=== PATIENT | male | born 1935 | race Hispanic/Latino ===

== ENCOUNTER 2020-03-29 08:38 | Inpatient (IN) | payer MEDICARE ==
[~2020-03-29] VITALS: Ht 170.2 cm; Wt 62.1 kg
[~2020-03-29 08:38] MED LIST: AEC81 PO; ENAL10TA PO; INS7030 SQ; Lipase/Protease/Amylase PO; METF-444 PO; MULT-1203 PO; POLY17PO4 PO
[2020-03-29 09:24] LABS: BASOPHILS % (AUTO) 0.4 % (0.0-5.0); EOSINOPHILS % (AUTO) 0.7 % (0.0-8.0); HEMATOCRIT 36.6 % (42-54); LYMPHOCYTES % (AUTO) 6.3 % (21.0-51.0); MEAN CORPUSCULAR HEMOGLOBIN 29.2 pg (27.0-33.0); MEAN CORPUSCULAR HGB CONC 32.2 g/dL (32.0-36.0); MEAN CORPUSCULAR VOLUME 90.6 fL (79-99); MONOCYTES % (AUTO) 5.6 % (3.0-13.0); NEUTROPHILS % (AUTO) 86.6 % (40.0-77.0); PLATELET COUNT (AUTO) 148 K/uL (130-400); RED BLOOD CELL COUNT(AUTO) 4.04 MIL/uL (4.50-6.20); RED CELL DISTRIBUTION WIDTH 12.5 % (11.0-15.5); WHITE BLOOD COUNT (AUTO) 8.2 K/uL (4.8-10.8)
[2020-03-29 09:33] LABS: CARBON DIOXIDE 25 mmol/L (21-32); CHLORIDE 101 mmol/L (101-111); GLOMERULAR FILTR. RATE CALC 76 mL/min (>60); GLUCOSE,RANDOM 203 mg/dL (70-105); POTASSIUM 4.1 mmol/L (3.5-5.1); SODIUM SERUM 137 mmol/L (136-145); UREA NITROGEN, BLOOD 24 mg/dL (7-18)
[2020-03-29 09:38] LABS: INR 1.04 (0.85-1.15); PARTIAL THROMBOPLASTIN TIME 28.4 SEC (26.3-35.5); PROTHROMBIN TIME 11.2 SEC (9.6-11.6)
[2020-03-29 09:44] LABS: ALANINE AMINOTRANSFERASE 34 U/L (12-78); ALBUMIN 3.3 g/dL (3.5-5.0); ASPARTATE AMINOTRANSFERASE 41 U/L (10-37); BILIRUBIN,TOTAL 0.7 mg/dL (0.2-1.0); CREATINE KINASE, TOTAL 195 U/L (21-232); MYOGLOBIN 303 ng/mL (10-92); TOTAL PROTEIN, SERUM 6.8 g/dL (6.0-8.3); TROPONIN I < 0.04 ng/mL (0.00-0.06)
[2020-03-29] MEDS ORDERED: CEFTRIAXONE SODIUM 1 GM ONE (09:49)
[2020-03-29] MEDS ORDERED: AZITHROMYCIN 500MG+NS 250ML 250 ML IV ONE (09:49)
[2020-03-29 09:52] LABS: APPEARANCE,URINE Clear (CLEAR); BILIRUBIN,URINE Negative (NEGATIVE); COLOR,URINE Yellow (YELLOW); GLUCOSE, URINE (UA) >=1000 mg/dL (NEGATIVE); KETONES,URINE 40 mg/dL (NEGATIVE); LEUKOCYTE ESTERASE ,URINE Negative (NEGATIVE); NITRATE,URINE Negative (NEGATIVE); OCCULT BLOOD,URINE Small (NEGATIVE); PROTEIN,URINE Trace mg/dL (NEGATIVE)
[2020-03-29 10:08] LABS: BACTERIA,URINE Rare /HPF (None Seen); RBC,URINE 0-1 /HPF (0-1); SQUAMOUS EPITHELIAL CELL,UR 0-2 /HPF (0-2); WBC,URINE 0-1 /HPF (0-1)
[2020-03-29] MEDS ORDERED: ENAL5TAB PO (11:26)
[2020-03-29] MEDS ORDERED: METF-444 PO (11:26)
[2020-03-29] MEDS ORDERED: [UNRECOGNIZED DRUG - OTHER] PO (11:26)
[2020-03-29] MEDS ORDERED: INSU100I24 SQ (11:30)
[2020-03-29] MEDS ORDERED: DICL2100G TP (11:30)
[2020-03-29] MEDS ORDERED: INSU100I3 SQ (11:30)
[2020-03-29] MEDS ORDERED: EMPA10TA PO (11:30)
[2020-03-29] MEDS ORDERED: BENZ-51 PO (11:30)
[2020-03-29] MEDS ORDERED: ZENPEP PO (11:33)
[2020-03-29] MEDS ORDERED: LIDOCAINE HCL-MPF 1% 2ML VIAL IJ PRN (13:30)
[2020-03-29] MEDS ORDERED: DIPHENHYDRAMINE HCL 25 MG CAPSULE PO PRN (13:30)
[2020-03-29] MEDS ORDERED: GLUCAGON 1MG KIT 1 MG ML IM PRN (13:30)
[2020-03-29] MEDS ORDERED: ACETAMINOPHEN 325 MG TAB PO PRN ×2 (13:30)
[2020-03-29] MEDS ORDERED: POTASSIUM CHLORIDE 20 MEQ ERTAB PO PRN (13:30)
[2020-03-29] MEDS ORDERED: DEXTROSE 50%-WATER 50 ML DISP.SYRIN IV PRN (13:30)
[2020-03-29] MEDS ORDERED: POTASSIUM CHLORIDE 10% ELIXIR 20 MEQ/15 ML UDCUP PO PRN (13:30)
[2020-03-29] MEDS ORDERED: DiphenhydrAMINE HCL 50 MG/ML VIAL IV PRN (13:30)
[2020-03-29] MEDS ORDERED: POTASSIUM CHLORIDE 20MEQ/100ML 100 ML IV PRN (13:30)
[2020-03-29 15:00] VITALS: BP 135/68
[2020-03-29] MEDS: SODIUM CHLORIDE 0.9% 1000ML 1,000 ML IV SCH ×2 (16:02→20:29)
[2020-03-29] MEDS: INSULIN HUMULIN R 100 UNIT/ML 3ML SQ SCH ×2 (16:30→20:38)
[2020-03-29] MEDS: ALBUTEROL INHALER 90MCG/INH IH SCH ×2 (17:19→21:00)
--- NOTE | 2020-03-29 19:52 | NUR ---
dr holguin called for updates informed md of covid positive results, cxr and labs reviewed orders md stated she would call and update family and check back in tmw
[2020-03-29 20:18] VITALS: BP 119/78
[2020-03-29] MEDS ORDERED: ACETAMINOPHEN EXTRA STRENGTH 500 MG TABLET PO PRN (21:15)
[2020-03-29 23:46] VITALS: BP 117/62
[2020-03-30 04:00] VITALS: BP 108/54
[2020-03-30] MEDS: INSULIN HUMULIN R 100 UNIT/ML 3ML SQ SCH ×4 (05:44→22:12)
[2020-03-30] MEDS: SODIUM CHLORIDE 0.9% 1000ML 1,000 ML IV SCH ×3 (05:44→16:48)
[2020-03-30] MEDS: ZENPEP 20000 UNIT PO SCH ×3 (09:00→21:00)
[2020-03-30] MEDS: ALBUTEROL INHALER 90MCG/INH IH SCH ×4 (09:00→22:11)
[2020-03-30] MEDS: AZITHROMYCIN 500MG+NS 250ML 250 ML IV SCH (09:26)
[2020-03-30] MEDS: CEFTRIAXONE SODIUM 1 GM IVP SCH (09:26)
[2020-03-30] MEDS: PANTOPRAZOLE SODIUM 40 MG TABLET.DR PO SCH (09:26)
[2020-03-30] MEDS: ENOXAPARIN SODIUM 30 MG/0.3 ML SQ SCH (09:27)
[2020-03-30 10:25] VITALS: BP 114/56
[2020-03-30 13:43] VITALS: BP 110/53
--- NOTE | 2020-03-30 15:01 | NUR ---
CM NOTE/IA PATIENT IS POSITIVE FOR COVID AND IN RESTRICTED AREA OF HOSPITAL, DAUGHTER CALLED FOR INFO. PER RONDA SCHNEIDER, DAUGHTER, PATIENT IS INDEPENDENT WITH ADLS, LIVES ALONE, HAS FAMILY DRIVE HIM TO APPOINTMENTS IF NEEDED, HAS USE OF HOSPITAL BED, ROLLATOR WALKER, SC AND HAS PROVIDER SERVICES FOR 4HR PER DAY MON THRU AND 6HR PER DAY SAT THRU SATURDAY. PER DAUGHTER, FEELS SAFE FOR PATIENT TO RETURN HOME ONCE DISCHARGED AND STABLE. CM TO FOLLOW UP. Addendum: 03/31/20 at 1503 by JEFF GUZMAN RN CM Amended: Links added.
--- NOTE | 2020-03-30 17:53 | NUR ---
DC PLAN PATIENT LIVES ALONE, SEMI INDEPENDENT ABLE TO PERFORM SOME ADL'S. PATIENT HAS HOSPITAL BED, ROLLATOR WALKER, SHOWER CHAIR, PROVIDER 4 HRS A DAY. PLAN IS TO DC HOME. PATIENT POSITIVE FOR COVID 03/29 IN ISOLATION UNIT. Addendum: 03/30/20 at 1755 by STARR ELKINS RN CM Amended: Links added.
[2020-03-30 19:02] VITALS: BP 109/55
[2020-03-30 19:30] VITALS: BP 116/58
[2020-03-31 00:25] VITALS: BP 124/62
[2020-03-31 04:04] VITALS: BP 118/57
[2020-03-31] MEDS: INSULIN HUMULIN R 100 UNIT/ML 3ML SQ SCH ×4 (06:38→21:00)
[2020-03-31] MEDS: ZENPEP 20000 UNIT PO SCH ×2 (07:18→13:44)
[2020-03-31 08:49] VITALS: BP 127/67
[2020-03-31] MEDS: PANTOPRAZOLE SODIUM 40 MG TABLET.DR PO SCH (09:40)
[2020-03-31] MEDS: AZITHROMYCIN 500MG+NS 250ML 250 ML IV SCH (09:41)
[2020-03-31] MEDS: ENOXAPARIN SODIUM 30 MG/0.3 ML SQ SCH (09:41)
[2020-03-31] MEDS: CEFTRIAXONE SODIUM 1 GM IVP SCH (09:41)
[2020-03-31] MEDS: ALBUTEROL INHALER 90MCG/INH IH SCH ×2 (09:53→13:44)
[2020-03-31 12:49] VITALS: BP 134/67
[2020-03-31 16:00] VITALS: BP 116/66
[2020-03-31 17:28] LABS: CRP QUANTITATIVE 178.5 mg/L (0.00-9.0)
[2020-03-31 20:00] VITALS: BP 112/49
[2020-03-31] MEDS: DEXAMETHASONE 4 MG TAB PO SCH (21:00)
[2020-04-01 00:25] VITALS: BP_SYST 128; BP_SYST 156; BP_DIAS 75; BP_DIAS 84
[2020-04-01 04:04] VITALS: BP 141/76
[2020-04-01 05:42] LABS: CRP QUANTITATIVE 173.3 mg/L (0.00-9.0)
[2020-04-01] MEDS: INSULIN HUMULIN R 100 UNIT/ML 3ML SQ SCH ×4 (06:40→21:10)
[2020-04-01 08:00] VITALS: BP 153/78
[2020-04-01] MEDS: PANTOPRAZOLE SODIUM 40 MG TABLET.DR PO SCH (08:57)
[2020-04-01] MEDS: DEXAMETHASONE 4 MG TAB PO SCH (08:58)
[2020-04-01] MEDS: ENOXAPARIN SODIUM 60 MG/0.6 ML SQ SCH (08:58)
[2020-04-01 12:05] VITALS: BP 142/72
[2020-04-01 13:06] LABS: BASOPHILS % (AUTO) 0.3 % (0.0-5.0); EOSINOPHILS % (AUTO) 0.1 % (0.0-8.0); HEMATOCRIT 34.8 % (42-54); LYMPHOCYTES % (AUTO) 4.4 % (21.0-51.0); MEAN CORPUSCULAR HEMOGLOBIN 29.7 pg (27.0-33.0); MEAN CORPUSCULAR HGB CONC 32.5 g/dL (32.0-36.0); MEAN CORPUSCULAR VOLUME 91.6 fL (79-99); MONOCYTES % (AUTO) 3.3 % (3.0-13.0); NEUTROPHILS % (AUTO) 90.3 % (40.0-77.0); PLATELET COUNT (AUTO) 205 K/uL (130-400); RED CELL DISTRIBUTION WIDTH 13.3 % (11.0-15.5); WHITE BLOOD COUNT (AUTO) 8.8 K/uL (4.8-10.8)
[2020-04-01 13:11] LABS: CREATININE 1.1 mg/dL (0.5-1.5); POTASSIUM 4.4 mmol/L (3.5-5.1)
[2020-04-01 18:17] VITALS: BP 152/77
[2020-04-01 20:00] VITALS: BP 155/84
[2020-04-01] MEDS: DEXAMETHASONE SOD PHOSPHATE 4 MG/ML 1ML VIAL IVP SCH (21:09)
[2020-04-02] VITALS: BP 140/83
[2020-04-02 04:00] VITALS: BP 141/79
[2020-04-02 05:14] LABS: HEMATOCRIT 31.5 % (42-54); MEAN CORPUSCULAR VOLUME 87.7 fL (79-99); PLATELET COUNT (AUTO) 184 K/uL (130-400); RED BLOOD CELL COUNT(AUTO) 3.59 MIL/uL (4.50-6.20); RED CELL DISTRIBUTION WIDTH 12.8 % (11.0-15.5)
[2020-04-02 05:26] LABS: BAND NEUTROPHILS % (MANUAL) 8 % (0-2); LYMPHOCYTES % (MANUAL) 18 % (22-44); MAN.DIFF COMMENT-IMPRESSION MANUAL DIFFERENTIAL; PLATELET MORPHOLOGY COMMENT ADEQUATE; SEGMENTED NEUTROPHILS % 74 % (40-70)
[2020-04-02 05:35] LABS: CREATININE 0.9 mg/dL (0.5-1.5); CRP QUANTITATIVE 148.6 mg/L (0.00-9.0)
[2020-04-02] MEDS: INSULIN HUMULIN R 100 UNIT/ML 3ML SQ SCH ×4 (06:23→21:00)
[2020-04-02 08:02] VITALS: BP 136/70
[2020-04-02] MEDS: PANTOPRAZOLE SODIUM 40 MG TABLET.DR PO SCH (08:36)
[2020-04-02] MEDS: ENOXAPARIN SODIUM 60 MG/0.6 ML SQ SCH (08:37)
[2020-04-02] MEDS: DEXAMETHASONE SOD PHOSPHATE 4 MG/ML 1ML VIAL IVP SCH ×2 (08:37→22:13)
[2020-04-02 11:31] VITALS: BP 134/64
[2020-04-02 16:34] VITALS: BP 131/73
[2020-04-02 20:37] VITALS: BP 124/68
[2020-04-03 00:46] VITALS: BP 124/62
[2020-04-03 04:50] VITALS: BP 130/68
[2020-04-03 06:24] LABS: HEMATOCRIT 32.1 % (42-54); MEAN CORPUSCULAR HGB CONC 32.7 g/dL (32.0-36.0); MEAN CORPUSCULAR VOLUME 88.7 fL (79-99); PLATELET COUNT (AUTO) 210 K/uL (130-400); RED BLOOD CELL COUNT(AUTO) 3.62 MIL/uL (4.50-6.20); WHITE BLOOD COUNT (AUTO) 8.9 K/uL (4.8-10.8)
[2020-04-03] MEDS: INSULIN HUMULIN R 100 UNIT/ML 3ML SQ SCH ×5 (06:27→21:17)
[2020-04-03 06:47] LABS: ALBUMIN 2.4 g/dL (3.5-5.0); BILIRUBIN,TOTAL 0.4 mg/dL (0.2-1.0); CREATININE 1.1 mg/dL (0.5-1.5); CRP QUANTITATIVE 78.9 mg/L (0.00-9.0); POTASSIUM 3.9 mmol/L (3.5-5.1); TOTAL PROTEIN, SERUM 6.2 g/dL (6.0-8.3)
[2020-04-03 07:48] VITALS: BP 131/72
[2020-04-03 08:03] LABS: LYMPHOCYTES % (MANUAL) 7 % (22-44); MAN.DIFF COMMENT-IMPRESSION MANUAL DIFFERENTIAL; MONOCYTES % (MANUAL) 3 % (2-9); SEGMENTED NEUTROPHILS % 90 % (40-70)
[2020-04-03 08:04] LABS: PLATELET MORPHOLOGY COMMENT ADEQUATE
--- NOTE | 2020-04-03 08:16 | NUR ---
notified dr. holguin for the result of d dimer of [id number]
[2020-04-03] MEDS: DEXAMETHASONE SOD PHOSPHATE 4 MG/ML 1ML VIAL IVP SCH ×2 (10:10→21:15)
[2020-04-03] MEDS: PANTOPRAZOLE SODIUM 40 MG TABLET.DR PO SCH (10:10)
[2020-04-03] MEDS: ENOXAPARIN SODIUM 60 MG/0.6 ML SQ SCH (10:14)
[2020-04-03 11:34] VITALS: BP 119/69
[2020-04-03 16:13] VITALS: BP 123/68
[2020-04-03 19:58] VITALS: BP 155/74
[2020-04-04] VITALS (7 sets, daily range): BP systolic 126–150; BP diastolic 68–80
[2020-04-04 04:10] LABS: HEMATOCRIT 32.6 % (42-54); MEAN CORPUSCULAR HEMOGLOBIN 29.1 pg (27.0-33.0); MEAN CORPUSCULAR HGB CONC 32.2 g/dL (32.0-36.0); MEAN CORPUSCULAR VOLUME 90.3 fL (79-99); PLATELET COUNT (AUTO) 187 K/uL (130-400); RED BLOOD CELL COUNT(AUTO) 3.61 MIL/uL (4.50-6.20); WHITE BLOOD COUNT (AUTO) 6.5 K/uL (4.8-10.8)
[2020-04-04 04:35] LABS: ALBUMIN 2.4 g/dL (3.5-5.0); BILIRUBIN,TOTAL 0.3 mg/dL (0.2-1.0); CREATININE 1.1 mg/dL (0.5-1.5); CRP QUANTITATIVE 50.4 mg/L (0.00-9.0); POTASSIUM 3.7 mmol/L (3.5-5.1); TOTAL PROTEIN, SERUM 6.1 g/dL (6.0-8.3)
[2020-04-04 04:51] LABS: LYMPHOCYTES % (MANUAL) 5 % (22-44); MAN.DIFF COMMENT-IMPRESSION MANUAL DIFFERENTIAL; MONOCYTES % (MANUAL) 5 % (2-9); SEGMENTED NEUTROPHILS % 90 % (40-70)
[2020-04-04 04:52] LABS: PLATELET MORPHOLOGY COMMENT ADEQUATE
[2020-04-04] MEDS: INSULIN HUMULIN R 100 UNIT/ML 3ML SQ SCH ×4 (06:42→21:00)
[2020-04-04] MEDS: DEXAMETHASONE SOD PHOSPHATE 4 MG/ML 1ML VIAL IVP SCH (09:08)
[2020-04-04] MEDS: ENOXAPARIN SODIUM 60 MG/0.6 ML SQ SCH (09:08)
[2020-04-04] MEDS: PANTOPRAZOLE SODIUM 40 MG TABLET.DR PO SCH (09:08)
[2020-04-04] MEDS: CLINDAMYCIN HCL 150 MG CAP PO SCH ×2 (20:54→22:45)
[2020-04-04] MEDS: METHYLPREDNISOLONE SOD SUCC 40MG/ML 1ML IVP SCH (20:54)
[2020-04-05 03:02] VITALS: BP 138/72
[2020-04-05 03:41] LABS: HEMATOCRIT 33.2 % (42-54); LYMPHOCYTES % (AUTO) 10.3 % (21.0-51.0); MEAN CORPUSCULAR HEMOGLOBIN 29.3 pg (27.0-33.0); MEAN CORPUSCULAR HGB CONC 32.5 g/dL (32.0-36.0); MEAN CORPUSCULAR VOLUME 90.2 fL (79-99); MONOCYTES % (AUTO) 2.4 % (3.0-13.0); NEUTROPHILS % (AUTO) 85.2 % (40.0-77.0); PLATELET COUNT (AUTO) 168 K/uL (130-400); RED BLOOD CELL COUNT(AUTO) 3.68 MIL/uL (4.50-6.20); RED CELL DISTRIBUTION WIDTH 12.9 % (11.0-15.5); WHITE BLOOD COUNT (AUTO) 6.2 K/uL (4.8-10.8)
[2020-04-05 04:04] LABS: ALBUMIN 2.2 g/dL (3.5-5.0); BILIRUBIN,TOTAL 0.3 mg/dL (0.2-1.0); CREATININE 1.1 mg/dL (0.5-1.5); CRP QUANTITATIVE 27.3 mg/L (0.00-9.0); POTASSIUM 4.1 mmol/L (3.5-5.1); TOTAL PROTEIN, SERUM 5.6 g/dL (6.0-8.3)
[2020-04-05] MEDS: CLINDAMYCIN HCL 150 MG CAP PO SCH ×4 (04:46→22:14)
[2020-04-05] MEDS: INSULIN HUMULIN R 100 UNIT/ML 3ML SQ SCH ×4 (06:25→21:00)
[2020-04-05 07:30] VITALS: BP 134/78
[2020-04-05] MEDS: PANTOPRAZOLE SODIUM 40 MG TABLET.DR PO SCH (09:06)
[2020-04-05] MEDS: ENOXAPARIN SODIUM 60 MG/0.6 ML SQ SCH (09:06)
[2020-04-05] MEDS: METHYLPREDNISOLONE SOD SUCC 40MG/ML 1ML IVP SCH ×2 (09:06→22:14)
[2020-04-05] MEDS ORDERED: SODIUM CHLORIDE 0.9% 1000ML 1,000 ML IV ONE (11:27)
[2020-04-05 12:00] VITALS: BP 146/78
[2020-04-05 16:00] VITALS: BP 155/90
[2020-04-05 19:36] VITALS: BP 134/80
[2020-04-05 23:59] VITALS: BP 133/76
[2020-04-06 04:00] VITALS: BP 142/87
[2020-04-06] MEDS: CLINDAMYCIN HCL 150 MG CAP PO SCH ×4 (04:14→22:12)
[2020-04-06 06:41] LABS: BASOPHILS % (AUTO) 0.1 % (0.0-5.0); HEMATOCRIT 33.4 % (42-54); MEAN CORPUSCULAR HEMOGLOBIN 28.9 pg (27.0-33.0); MEAN CORPUSCULAR VOLUME 90.3 fL (79-99); MONOCYTES % (AUTO) 1.9 % (3.0-13.0); NEUTROPHILS % (AUTO) 87.5 % (40.0-77.0); PLATELET COUNT (AUTO) 156 K/uL (130-400); RED CELL DISTRIBUTION WIDTH 13.1 % (11.0-15.5); WHITE BLOOD COUNT (AUTO) 7.9 K/uL (4.8-10.8)
[2020-04-06] MEDS: INSULIN HUMULIN R 100 UNIT/ML 3ML SQ SCH ×4 (06:53→21:14)
[2020-04-06 07:00] VITALS: BP 133/81
[2020-04-06 07:18] LABS: ALBUMIN 2.3 g/dL (3.5-5.0); BILIRUBIN,TOTAL 0.4 mg/dL (0.2-1.0); CREATININE 1.1 mg/dL (0.5-1.5); CRP QUANTITATIVE 23.8 mg/L (0.00-9.0); POTASSIUM 4.7 mmol/L (3.5-5.1); TOTAL PROTEIN, SERUM 5.9 g/dL (6.0-8.3)
[2020-04-06] MEDS: ENOXAPARIN SODIUM 60 MG/0.6 ML SQ SCH (09:07)
[2020-04-06] MEDS: METHYLPREDNISOLONE SOD SUCC 40MG/ML 1ML IVP SCH ×2 (09:07→16:48)
[2020-04-06] MEDS: PANTOPRAZOLE SODIUM 40 MG TABLET.DR PO SCH (09:08)
[2020-04-06] MEDS ORDERED: METHYLPREDNISOLONE SOD SUCC 40MG/ML 1ML IVP SCH (10:00)
--- NOTE | 2020-04-06 10:11 | NUR ---
DC Plan Per discussion with PMD on 04/05, possible dc today. Per nursing report this AM, patient unable to be weaned from the O2. Patient signed JOANNE/Choice Letter for O2. Pending order for Home O2 eval. LEXY to continue to follow. CD Addendum: 04/06/20 at 1016 by STEVEN PEREZ CM Amended: Links added.
[2020-04-06 11:00] VITALS: BP 126/72
[2020-04-06] MEDS ORDERED: PHARMACY COMMUNICATION MISC SCH (11:30)
--- NOTE | 2020-04-06 14:16 | NUR ---
RDSCREEN - LOS X 8 Pt admitted with PNA, Positive for Covid-19. Pt tolerating 75gm, Soft/Chicot diet order with no report of GI distress. Elevated BG levels. Low BMI for age. Recommend 60mL ProMod QD Recommend continue current diet order RD to continue to monitor. Addendum: 04/06/20 at [address] RD Amended: Links added.
[2020-04-06 16:00] VITALS: BP 122/75
--- NOTE | 2020-04-06 17:14 | NUR ---
Home O2 O2 referral sent to [facility] patient. Pending approval. Addendum: 04/06/20 at 1714 by STEVEN PEREZ CM Amended: Links added.
[2020-04-06 19:50] VITALS: BP 133/74
[2020-04-06 23:48] VITALS: BP 123/70
[2020-04-07] MEDS: METHYLPREDNISOLONE SOD SUCC 40MG/ML 1ML IVP SCH ×2 (00:18→08:42)
[2020-04-07] MEDS: CLINDAMYCIN HCL 150 MG CAP PO SCH ×3 (04:38→17:04)
[2020-04-07 04:43] VITALS: BP 132/78
[2020-04-07 05:28] LABS: BASOPHILS % (AUTO) 0.2 % (0.0-5.0); LYMPHOCYTES % (AUTO) 7.2 % (21.0-51.0); MEAN CORPUSCULAR HEMOGLOBIN 29.5 pg (27.0-33.0); MEAN CORPUSCULAR HGB CONC 32.6 g/dL (32.0-36.0); MEAN CORPUSCULAR VOLUME 90.5 fL (79-99); MONOCYTES % (AUTO) 2.5 % (3.0-13.0); NEUTROPHILS % (AUTO) 88.4 % (40.0-77.0); PLATELET COUNT (AUTO) 210 K/uL (130-400); RED CELL DISTRIBUTION WIDTH 13.5 % (11.0-15.5); WHITE BLOOD COUNT (AUTO) 10.1 K/uL (4.8-10.8)
[2020-04-07 05:55] LABS: ALBUMIN 2.4 g/dL (3.5-5.0); BILIRUBIN,TOTAL 0.4 mg/dL (0.2-1.0); CREATININE 1.1 mg/dL (0.5-1.5); CRP QUANTITATIVE 19.4 mg/L (0.00-9.0); POTASSIUM 5.6 mmol/L (3.5-5.1); TOTAL PROTEIN, SERUM 6.4 g/dL (6.0-8.3)
[2020-04-07] MEDS: INSULIN HUMULIN R 100 UNIT/ML 3ML SQ SCH ×3 (06:12→16:30)
[2020-04-07 08:15] VITALS: BP 125/69
[2020-04-07] MEDS: PANTOPRAZOLE SODIUM 40 MG TABLET.DR PO SCH (08:42)
[2020-04-07] MEDS: ENOXAPARIN SODIUM 60 MG/0.6 ML SQ SCH (08:43)
[2020-04-07 11:45] VITALS: BP 118/70
--- NOTE | 2020-04-07 12:36 | NUR ---
DC PLAN DAUGHTER CALLED SAID O2 DELIVERED TO HOME. NEEDS AMBULANCE TO TRANSPORT PATIENT. EXPLAINED THAT MEDICARE MIGHT NOT COVER TRANSPORT AND THEY COULD GET A BILL. SAID NO CHOICE OKAY IF THEY GET BILL. EMS FORMS SENT TO [facility] GIVEN TO NURSE FOR NUMBER TO CALL. Addendum: 04/07/20 at 1238 by STARR ELKINS RN CM Amended: Links added.
[2020-04-07 13:11] LABS: CREATININE 1.2 mg/dL (0.5-1.5); POTASSIUM 4.7 mmol/L (3.5-5.1)
[2020-04-07] MEDS ORDERED: APIX2.5T PO (16:00)
[2020-04-07] MEDS ORDERED: DEXA6TAB7 PO (16:00)
[2020-04-07 16:49] VITALS: BP 114/68
--- NOTE | 2020-04-07 17:20 | NUR ---
EMS MADE AWARE OF PENDING TRANSPORT
--- NOTE | 2020-04-07 17:30 | NUR ---
DISCHARGE INSTRUCTIONS GIVEN TO PATIENTS DAUGHTER RONDA SCHNEIDER OVER THE PHONE, MADE AWARE SHE NEEDS TO SCHEDULE APPOINTMENT WITH DR. SUAZO [facility] IN 7-[address] MCLAIN IN 3-5 DAYS. MADE AWARE OF NEW RX FOR DECADRON AND ELIQUIS, INSTRUCTED ON HOW TO TAKE MEDICATIONS. COVID EDUCATION PROVIDED. PATIENTS DAUGHTER VOICED UNDERSTANDING ON THE USE OF O2 AT 2LPM.
--- NOTE | 2020-04-07 17:50 | NUR ---
DISCHARGE INSTRUCTIONS GIVEN TO PATIENT MADE AWARE HIS DAUGHTER WILL BE SCHEDULING APPOINTMENTS WITH DR. SUAZO AND DR. MCLAIN. EDUCATED ON NEW MEDICATIONS, EDUCATED ON COVID 19. PATIENT AT THIS TIME DENIES ANY PAIN, DENIES ANY SHORTNESS OF BREATH, NO SIGNS AND SYMPTOMS OF DISTRESS. CONTINUES WITH O2 2LPM VIA NC SATURATING 96%. IV REMOVED. PENDING EMS TO TRANSPORT HOME.
--- NOTE | 2020-04-07 18:12 | NUR ---
EMS ARRIVED, PATIENT STABLE, DISCHARGED HOME
[2020-04-08] MEDS ORDERED: DEXAMETHASONE 4 MG TAB PO SCH (09:00)
== END 2020-04-07 18:10 | disposition home or self-care (01) | DRG 177 ==
LOC: EDH 08:38 → EDHIP 10:55 → 2DH 14:22
PROVIDERS: ADMIT Internal Medicine; ATTEND Internal Medicine
PROC: 30233K1 Transfusion of Nonautologous Frozen Plasma into Peripheral Vein, Percutaneous Approach (ICD-10-PCS; principal; 2020-04-05)
DX: U07.1 COVID-19 (principal); G93.41 Metabolic encephalopathy; J12.89 Other viral pneumonia; G72.0 Drug-induced myopathy; K76.6 Portal hypertension; D63.8 Anemia in other chronic diseases classified elsewhere; D69.6 Thrombocytopenia, unspecified; D72.810 Lymphocytopenia; E11.22 Type 2 diabetes mellitus with diabetic chronic kidney disease; E11.42 Type 2 diabetes mellitus with diabetic polyneuropathy; E11.43 Type 2 diabetes mellitus with diabetic autonomic (poly)neuropathy; I13.10 Hypertensive heart and chronic kidney disease without heart failure, with stage 1 through stage 4 chronic kidney disease, or unspecified chronic kidney disease; Z96.653 Presence of artificial knee joint, bilateral; I25.10 Atherosclerotic heart disease of native coronary artery without angina pectoris; I25.2 Old myocardial infarction; K74.60 Unspecified cirrhosis of liver; N18.2 Chronic kidney disease, stage 2 (mild); N40.0 Benign prostatic hyperplasia without lower urinary tract symptoms; Y92.89 Other specified places as the place of occurrence of the external cause; T46.6X5A Adverse effect of antihyperlipidemic and antiarteriosclerotic drugs, initial encounter; Z79.4 Long term (current) use of insulin; Z82.49 Family history of ischemic heart disease and other diseases of the circulatory system; Z90.49 Acquired absence of other specified parts of digestive tract; K31.89 Other diseases of stomach and duodenum
CPT/HCPCS: 36415; 36430; 71045; 80048; 80053; 81001; 82550; 82728; 82948; 83605; 83615; 83874; 84145; 84484; 85025; 85378; 85610; 85730; 86140; 86850; 86900; 86901; 86927; 87040; 87077; 87088; 87186; 87635; 93005; 94760; G0378; J0456; J0696; J1100; J1650; J1815; J2920; J7030; J8540; P9017